=== PATIENT | female | born 1945 | race Caucasian/White ===

== ENCOUNTER → 2020-09-11 | Outpatient (CLI) | payer MEDICARE ==
--- NOTE | 2020-09-11 17:15 | RAD ---
PA and lateral chest radiographs 09/11/2020 CLINICAL HISTORY: Shortness of breath. PA and lateral digital radiographs of the chest were obtained. No previous studies are available for comparison. The patient is post CABG procedure. The cardiac silhouette is mildly enlarged. The thorac ic aorta is mildly tortuous. Subsegmental atelectasis is seen involving the right midlung. Slight pro minence of the pulmonary vasculature is seen suggesting mild CHF. No pneumothorax or significant pleu ral effusion is seen. There is diffuse osteopenia the visualized bony structures. Mild S-shaped curva ture of the thoracolumbar spine is noted. Degenerative changes are seen involving the thoracic spine. IMPRESSION: Findings suggesting mild CHF. Electronically signed by: Juaquin Booth MD (09/11/2020 5:13 PM) [id number]
== END ==
LOC: RAD 11:32
PROVIDERS: ATTEND Nurse Practitioner Family
DX: R06.02 Shortness of breath (principal)
CPT/HCPCS: 71046

== ENCOUNTER → 2020-11-01 | Outpatient (CLI) | payer MEDICARE ==
--- NOTE | 2020-11-01 12:05 | RAD ---
EXAM: Chest, 2 views. HISTORY: Productive cough. COMPARISON: None. FINDINGS: 2 views of the chest are obtained. There is stable diffuse increased interstitial opacity. There is stable cardiomegaly and evidence of prior median sternotomy. There is no consolidation, pleu ral effusion or pneumothorax. There is thoracic kyphosis. IMPRESSION: Stable chronic appearing interstitial prominence and cardiomegaly. Electronically signed by: Yara Gasca MD (11/01/2020 12:03 PM) [id number]
== END ==
LOC: RAD 11:44
PROVIDERS: ATTEND Nurse Practitioner Family
DX: M40.204 Unspecified kyphosis, thoracic region (principal); R05 Cough; R06.2 Wheezing; J18.9 Pneumonia, unspecified organism
CPT/HCPCS: 71046